=== PATIENT | male | born 1970 | race African-American/Black ===

== ENCOUNTER 2017-01-13 14:39 | Emergency (ER) | payer BC ==
[~2017-01-13] VITALS: Ht 167.6 cm; Wt 85.0 kg
[~2017-01-13 14:39] MED LIST: NAPR-576 PO; ROBA750T3 PO
[2017-01-13 14:42] VITALS: BP 145/85; PULSE 61; RESP 18; TEMP 98.2
--- NOTE | 2017-01-13 14:53 | PD ---
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 Is not up-to-date on tetanus vaccination. Denies paresthesias, loss of sensation to the affected finger. Has applied pressure and controlled bleeding. Has no other medical complaints. No known allergies. No other modifying factors or associated signs and symptoms. PFSH Past Medical History Diminished Hearing: No Tetanus Vaccination: > 5 Years Influenza Vaccination: No Past Surgical History Surgical History: No Previous Surgery Social History Alcohol Use: No Tobacco Use: No (quit yrs ago) Substance Use: No Allergies-Medications (Allergen,Severity, Reaction): Coded Allergies: No Known Allergies (Unverified , 08/13/15) Reported Meds & Prescriptions Reported Meds & Active Scripts Active Cephalexin 500 Mg Cap 500 Mg PO Q8H 7 Days Ibuprofen 800 Mg Tab 800 Mg PO Q6HR PRN Review of Systems Except as stated in HPI: all other systems reviewed are Neg Physical Exam Narrative GENERAL: Well-nourished, well-developed male patient, in no acute distress SKIN: Warm and dry. Laceration to the medial aspect of the right fifth digit at approximately the DIP joint; bleeding controlled; finger with full range of motion and good opposition; sensory intact; without erythema, edema. HEAD: Atraumatic. Normocephalic. EYES: Pupils equal and round. No scleral icterus. No injection or drainage. ENT: Mucosa pink and moist. Airway patent. NECK: Trachea midline. CARDIOVASCULAR: Regular rate. RESPIRATORY: No accessory muscle use. GASTROINTESTINAL: Rounded. MUSCULOSKELETAL: No obvious deformities. No clubbing. No cyanosis. No edema. NEUROLOGICAL: Awake and alert. Oriented 3. No obvious cranial nerve deficits. Motor grossly within normal limits. Normal speech. PSYCHIATRIC: Appropriate mood and affect; insight and judgment normal. Data Data Last Documented VS Vital Signs Date Time Temp Pulse Resp B/P Pulse Ox O2 Delivery O2 Flow Rate FiO2 01/13/17 15:35 Room Air 01/13/17 14:42 98.2 61 18 145/85 Orders Tetanus/Diphtheria Tox Adult (Tetanus/Di (01/13/17 15:00) Lidocaine 1% Inj (50 Ml) (Xylocaine 1% I (01/13/17 15:00) [facility] Medical Decision Making Medical Screen Exam Complete: Yes Emergency Medical Condition: Yes Medical Record Reviewed: Yes Differential Diagnosis Laceration, contusion, abrasion Narrative Course 46-year-old male with laceration to his right pinky finger. Tetanus updated in the ER. See my procedure note for laceration repair. Keflex and ibuprofen prescribed for home. To return to the emergency department or follow-up with primary care in 7-10 days for suture removal. Patient verbalizes understanding and agreement with treatment plan. Patient is medically cleared and stable for discharge. Discussed reasons to return to the emergency department. Instructed patient to follow up with primary care provider. Patient agrees with treatment plan. The patients vital signs are stable and the patient is stable for outpatient follow-up and treatment. Patient discharged home, stable and in no acute distress. Procedures Procedure Narrative LACERATION LOCATION: medial aspect of the right fifth digit at approximately the DIP joint LENGTH: 1.5CM NUMBER OF STITCHES/ZULMA: 3 simple interrupted sutures REPAIR: The area of the laceration was prepped with Betadine and sterilely draped. The finger was digitally blocked with 1% lidocaine. The wound was copiously irrigated and explored without evidence of foreign body , tendon injury or neurovascular injury. The wound was closed using 4-0 Prolene. This was a single layer repair. A sterile dressing was applied. The patient was advised to keep the dressing clean and dry. Patient tolerated the procedure well. Diagnosis Primary Impression: Laceration of finger of right hand Qualified Code: S61.219A - Laceration of finger of right hand, initial encounter Referrals: Primary Care Physician Patient Instructions: Care For Your Stitches (ED), Finger Laceration (ED), General Instructions Additional Instructions: Keep area clean and dry Limit right pinky activity to decrease risk of sutures coming undone Ibuprofen or Tylenol instructed and as needed for pain and inflammation Ice pack to area as needed to decrease pain Return to the emergency department or follow-up with your primary care provider and 7-10 days for suture removal Follow up with primary care provider within 2-4 days Return to the emergency department immediately with worsening of symptoms, particularly if reddened streaks up or down the affected extremity from the suture site, fever, numbness/tingling in the affected extremity, loss of sensation in the affected extremity, severe swelling of the affected Med/Other Pt SpecificInfo: Prescription(s) given Scripts Cephalexin 500 Mg [id number] Mg PO Q8H 7 Days Ref 0 Prov:Suzie Solares 01/13/17 Ibuprofen 800 Mg [id number] Mg PO Q6HR PRN (PAIN) #30 TAB Ref 0 Prov:Suzie Solares 01/13/17 Disposition: 01 DISCHARGE HOME Condition: Stable Suzie Solares January 13, 2017 14:53
[2017-01-13] MEDS ORDERED: IBUP800T23 PO (14:56)
[2017-01-13] MEDS ORDERED: CEPH500C PO (14:57)
[2017-01-13] MEDS ORDERED: TETANUS/DIPHTHERIA TOXOID ADULT 0.5 ML VIAL IM ONE (15:00)
[2017-01-13] MEDS ORDERED: LIDOCAINE HCL 1% 50 ML VIAL INFIL ONE (15:00)
== END 2017-01-13 15:51 | disposition home or self-care (01) ==
LOC: NEPK 14:39
DX: S61.216A Laceration without foreign body of right little finger without damage to nail, initial encounter (principal); W22.09XA Striking against other stationary object, initial encounter; Y93.89 Activity, other specified; Y92.61 Building [any] under construction as the place of occurrence of the external cause; Y99.0 Civilian activity done for income or pay; Z23 Encounter for immunization
CPT/HCPCS: 12001; 90471; 90714